=== PATIENT | male | born 1985 | race Caucasian/White ===

== ENCOUNTER 2018-04-08 00:35 | Emergency (ER) | payer MEDICAID ==
[~2018-04-08] VITALS: Ht 180.3 cm; Wt 95.3 kg
--- NOTE | 2018-04-08 03:12 | NUR ---
Patient discharged to home in stable conditon. Written and verbal after care instructions given. Patient verbalizes understanding of instructions. Ambulated from ER with stable gait. All belongings with patient.
[2018-04-08 03:13] VITALS: BP 128/78
== END 2018-04-08 03:17 | disposition home or self-care (01) ==
LOC: ER 00:43
DX: M23.91 Unspecified internal derangement of right knee (principal); F17.210 Nicotine dependence, cigarettes, uncomplicated
CPT/HCPCS: 73564; 93971; 99284; A4663